=== PATIENT | female | born 1990 | race Two or more races ===

== ENCOUNTER 2020-12-15 06:15 | Inpatient (IN) | payer OTHER ==
[~2020-12-15] VITALS: Ht 157.5 cm; Wt 56.2 kg
== END 2020-12-17 18:42 | disposition home or self-care (01) | DRG 742 ==
LOC: CIR.AMB 06:15 → O/R 15:39 → OB/GYN 15:39
PROVIDERS: ADMIT Specialist; ATTEND Specialist
PROC: 0UB24ZZ Excision of Bilateral Ovaries, Percutaneous Endoscopic Approach (ICD-10-PCS; principal; 2020-12-16)
PROC: 30233N1 Transfusion of Nonautologous Red Blood Cells into Peripheral Vein, Percutaneous Approach (ICD-10-PCS; 2020-12-16)
PROC: 0UDB7ZZ Extraction of Endometrium, Via Natural or Artificial Opening (ICD-10-PCS; 2020-12-16)
PROC: 0U5B4ZZ Destruction of Endometrium, Percutaneous Endoscopic Approach (ICD-10-PCS; 2020-12-16)
PROC: 0DNW4ZZ Release Peritoneum, Percutaneous Endoscopic Approach (ICD-10-PCS; 2020-12-16)
DX: N80.1 Endometriosis of ovary (principal); D62 Acute posthemorrhagic anemia; N73.6 Female pelvic peritoneal adhesions (postinfective); R19.00 Intra-abdominal and pelvic swelling, mass and lump, unspecified site; R10.2 Pelvic and perineal pain